=== PATIENT | male | born 1960 | race Caucasian/White ===

== ENCOUNTER 2016-11-13 10:22 | Emergency (ER) | payer OTHER ==
[2016-11-13 10:31] VITALS: BMI 27.3
[2016-11-13 11:11] VITALS: RESP 18; TEMP 98.4; O2SAT 98
[2016-11-13] MEDS ORDERED: Sodium Chloride 0.9% 1,000 ML IV STA (11:12)
[2016-11-13 11:37] LABS: ADD MANUAL DIFF? NO
[2016-11-13 11:42] LABS: BASO # 0.02 K/mm3 (0.0-2.0); BASO % 0.4 % (0.0-3.0); EOS # 0.1 (0.0-0.7); EOS % 1.4 % (1.5-5.0); GRAN # 3.17 (1.4-6.5); GRAN % 57.4 % (50.0-68.0); LYMPH % 35.9 % (22.0-35.0); MEAN CELL VOLUME 86.5 fL (80.0-105.0); MEAN CORPUSCULAR HEMOGLOBIN 32.1 pg (25.0-35.0); MEAN CORPUSCULAR HGB CONC 37.2 g/dl (31.0-37.0); MEAN PLATELET VOLUME 9.7 fl (7.0-11.0); MONO # 0.3 (0.1-0.6); MONO % 4.9 % (1.0-6.0); PLATELET COUNT 207 10^3/uL (120.0-450.0); RED CELL DISTRIBUTION WIDTH 12.4 % (11.5-14.5); WHITE BLOOD COUNT 5.5 10^3/ul (4.5-11.0)
--- NOTE | 2016-11-13 11:48 | ED PDOC ---
Arrival/HPI - General Historian: Patient - History of Present Illness Time/Duration: Prior to Arrival, 1-3 hours Severity Level: 9, 10 <Gerson Tejeda - Last Filed: 11/13/16 11:45> <Mele Bansal - Last Filed: 11/13/16 15:01> - General Chief Complaint: Abdominal Pain Time Seen by Provider: 11/13/16 10:50 - History of Present Illness Narrative History of Present Illness (Text): 11/13/16 11:45 This is a 55 year old male with PMH notable for HLD and GERD presenting with complaint of right sided flank pain since 9:30am this morning. The patient reports that pain is 9/10 pain that is radiating from his flank to his groin. The patient reports nausea. The patient denies all urinary symptoms. The patient reports good appetite, the patient denies fever, chills, vomiting. ( Gerson Tejeda) Past Medical History - Provider Review Nursing Documentation Reviewed: Yes - Travel History Have you recently traveled outside [place] w/in the past 3 mons?: No - Past History Past History: Non-Contributing - Infectious Disease Hx of Infectious Diseases: None - Tetanus Immunization Tetanus Immunization: Unknown - Cardiac Hx Cardiac Disorders: Yes - Gastrointestinal Hx Gastrointestinal Disorders: Yes Hx Gastroesophageal Reflux: Yes - Psychiatric Hx Substance Use: No <Gerson Tejeda - Last Filed: 11/13/16 11:45> Family/Social History - Physician Review Nursing Documentation Reviewed: Yes Family/Social History: No Known Family HX Smoking Status: Never Smoked Hx Alcohol Use: Yes Frequency of alcohol use: Socially Hx Substance Use: No <Gerson Tejeda - Last Filed: 11/13/16 11:45> Allergies/Home Meds <Gerson Tejeda - Last Filed: 11/13/16 11:45> <Mele Bansal - Last Filed: 11/13/16 15:01> Allergies/Adverse Reactions: Allergies Penicillins Allergy (Verified 11/13/16 10:30) ANAPHYLAXIS Review of Systems - Physician Review All systems were reviewed & negative as marked: Yes - Review of Systems Constitutional: absent: Fevers, Night Sweats Eyes: absent: Vision Changes, Photophobia ENT: absent: Hearing Changes, Tinnitus Respiratory: absent: SOB, Cough Cardiovascular: absent: Chest Pain, Palpitations Gastrointestinal: Abdominal Pain, Nausea. absent: Stool Changes, Vomiting, Appetite Changes, Hematochezia, Hematemesis, Food Intolerance Genitourinary Male: absent: Dysuria, Frequency, Hematuria, Urinary Output Changes Musculoskeletal: absent: Arthralgias, Back Pain Skin: absent: Rash, Pruritis Neurological: absent: Headache, Dizziness Endocrine: absent: Diaphoresis Hemo/Lymphatic: absent: Adenopathy Psychiatric: absent: Anxiety <Gerson Tejeda - Last Filed: 11/13/16 11:45> Physical Exam Vital Signs Reviewed: Yes Temperature: Afebrile Blood Pressure: Normal Pulse: Regular Respiratory Rate: Normal Appearance: Positive for: Well-Appearing, Non-Toxic. No: Comfortable Pain Distress: Moderate Mental Status: Positive for: Alert and Oriented X 3 - Systems Exam Head: Present: Atraumatic, Normocephalic Pupils: Present: PERRL Extroacular Muscles: Present: EOMI Conjunctiva: Present: Normal Mouth: Present: Moist Mucous Membranes Neck: Present: Normal Range of Motion Respiratory/Chest: Present: Clear to Auscultation, Good Air Exchange. No: Respiratory Distress, Accessory Muscle Use Cardiovascular: Present: Regular Rate and Rhythm, Normal S1, S2. No: Murmurs Abdomen: Present: Tenderness (RLQ), Normal Bowel Sounds. No: Distention, Peritoneal Signs, Rebound, Guarding Back: Present: Normal Inspection. No: CVA Tenderness, Midline Tenderness, Paraspinal Tenderness Upper Extremity: Present: Normal Inspection. No: Cyanosis, Edema Lower Extremity: Present: Normal Inspection. No: Edema Neurological: Present: GCS=15, CN II-XII Intact, Speech Normal Skin: Present: Warm, Dry, Normal Color. No: Rashes Psychiatric: Present: Alert, Oriented x 3, Normal Insight, Normal Concentration <Gerson Tejeda Last Filed: 11/13/16 11:45> Vital Signs Temp Pulse Resp BP Pulse Ox 11/13/16 13:06 72 18 126/56 L 98 11/13/16 10:23 98.4 F 78 18 122/68 98 Medical Decision Making - Lab Interpretations Interpretation: No clinic. lab abnormalty - RAD Interpretation Senior Enterprise Architect: Radiologist - EKG Interpretation Interpreted by ED Physician: Yes Type: 12 lead EKG <Gerson Tejeda - Last Filed: 11/13/16 11:45> <Mele Bansal - Last Filed: 11/13/16 15:01> ED Course and Treatment: 11/13/16 12:26 Impression: This is a 55 year old male with PMH notable for HLD and GERD presenting with complaint of right sided flank pain since 9:30am this morning. The patient appears in moderate distress 2/2 to pain. Differential: Nephrolithiasis Pyelonephritis Gastroenteritis Pancreatitis Plan: CBC, CMP, Lipase UA CT Abd/Pelv w/o contrast Toradol 15mg IV Prior Visits: None Progress Note: Patient seen and examined at the bedside. Moderate distress 2/2 to pain. Patient able to make urine. The urine appears dark. Patient pending CT abd/ pelv. The patient was given IV toradol for pain. The patient reports that his pain has improved since receiving the toradol. 11/13/16 12:45 Patient improved with toradol. Patient's CT scan and lab evaluation negative for acute pathology. The patient will be prescribed maalox on DC. The patient was advised to follow up with his PMD as soon as possible for follow up. The patient is agreeable with discharge. The patient is medically stable for discharge. (Gerson Tejeda) A 55 year old male with right flank pain. In agreement with resident note, which includes further HPI details. Patient was seen and evaluated with resident , came up with plan and treatment together. Will order CT, labs and medication. 11/13/16 13:00 - CT normal. No appy or renal colic. Patient feels much better. Abdomen is soft and not tender. He will f/u with his pmd this week. (Mele Bansal) - Lab Interpretations Narrative Lab Interpretation (Text): 11/13/16 12:47 11/13/16 11/13/16 12:17 10:43 WBC 5.5 RBC 5.32 Hgb 17.1 Hct 46.0 MCV 86.5 MCH 32.1 MCHC 37.2 H RDW 12.4 Plt Count 207 MPV 9.7 Gran % 57.4 Lymph % (Auto) 35.9 H Nolan % (Auto) 4.9 Eos % (Auto) 1.4 L Baso % (Auto) 0.4 Gran # 3.17 Lymph # 2.0 Nolan # 0.3 Eos # 0.1 Baso # 0.02 Sodium 136 Potassium 4.3 Chloride 99 Carbon Dioxide 23 Anion Gap 18 BUN 13 Creatinine 1.0 Est GFR ( Amer) > 60 Est GFR (Non-Af Amer) > 60 Random Glucose 146 H Calcium 9.8 Total Bilirubin 1.3 AST 94 H ALT 94 H Alkaline Phosphatase 81 Total Protein 8.0 Albumin 4.4 Globulin 3.6 Albumin/Globulin Ratio 1.2 Lipase 131 Urine Color Yellow Urine Appearance Clear Urine pH 6.5 Ur Specific [place] 1.020 Urine Protein Trace H Urine Glucose (UA) Negative Urine Ketones Negative Urine Blood Negative Urine Nitrate Negative Urine Bilirubin Negative Urine Urobilinogen 0.2 Ur Leukocyte Esterase Negative Urine RBC Pending Urine WBC Pending (Gerson Tejeda) Lab Results: 11/13/16 10:43 11/13/16 10:43 Lab Results 11/13/16 12:17: Urine Color Yellow, Urine Appearance Clear, Urine pH 6.5, Ur Specific [place] 1.020, Urine Protein Trace H, Urine Glucose (UA) Negative, Urine Ketones Negative, Urine Blood Negative, Urine Nitrate Negative, Urine Bilirubin Negative, Urine Urobilinogen 0.2, Ur Leukocyte Esterase Negative, Urine RBC 0 - 2, Urine WBC 0 - 2, Ur Epithelial Cells None, Amorphous Sediment Few, Urine Bacteria Many, Urine Other Uyeast 11/13/16 10:43: WBC 5.5, RBC 5.32, Hgb 17.1, Hct 46.0, MCV 86.5, MCH 32.1, MCHC 37.2 H, RDW 12.4, Plt Count 207, MPV 9.7, Gran % 57.4, Lymph % (Auto) 35.9 H, Nolan % (Auto) 4.9, Eos % (Auto) 1.4 L, Baso % (Auto) 0.4, Gran # 3.17, Lymph # 2.0, Nolan # 0.3, Eos # 0.1, Baso # 0.02, Sodium 136, Potassium 4.3, Chloride 99 , Carbon Dioxide 23, Anion Gap 18, BUN 13, Creatinine 1.0, Est GFR ( Amer ) > 60, Est GFR (Non-Af Amer) > 60, Random Glucose 146 H, Calcium 9.8, Total Bilirubin 1.3, AST 94 H, ALT 94 H, Alkaline Phosphatase 81, Total Protein 8.0, Albumin 4.4, Globulin 3.6, Albumin/Globulin Ratio 1.2, Lipase 131 - RAD Interpretation Narrative RAD Interpretations (Text): 11/13/16 12:46 PROCEDURE: CT Abdomen and Pelvis without intravenous contrast HISTORY: flank pain r/o nephrolithiasis COMPARISON: None. TECHNIQUE: Without contrast. Contrast Dose: Radiation dose: Total exam DLP = 814 mGy-cm. FINDINGS: LOWER THORAX: Unremarkable. LIVER: Unremarkable. No gross lesion or ductal dilatation. GALLBLADDER AND BILE DUCTS: Unremarkable. PANCREAS: Unremarkable. No gross lesion or ductal dilatation. SPLEEN: Unremarkable. ADRENALS: Unremarkable. No mass. KIDNEYS AND URETERS: Unremarkable. No hydronephrosis. No solid mass. VASCULATURE: Unremarkable. No aortic aneurysm. BOWEL: Unremarkable. No obstruction. No gross mural thickening. APPENDIX: Unremarkable. Normal appendix. PERITONEUM: Unremarkable. No free fluid. No free air. LYMPH NODES: Unremarkable. No enlarged lymph nodes. BLADDER: Unremarkable. REPRODUCTIVE: Unremarkable. BONES: No acute fracture. OTHER FINDINGS: Hernia mesh is seen in both inguinal canals. IMPRESSION: No acute intra-abdominal findings. No evidence of renal or ureteral stone (Gerson Tejeda) Radiology Orders: 11/13/16 11:11 ABD & PELVIS W/O PO OR IV CONT [CT] Stat - EKG Interpretation EKG Interpretation (Text): 11/13/16 12:47 NSR, no ST or T wave changes. Normal intervals . (Gerson Tejeda) - Medication Orders Current Medication Orders: Discontinued Medications Sodium Chloride (Sodium Chloride 0.9%) 1,000 mls @ 999 mls/hr IV .Q1H1M STA Stop: 11/13/16 12:12 Last Admin: 11/13/16 11:36 Dose: 999 MLS/HR eMAR Start Stop Document 11/13/16 11:36 [facility] (Rec: 11/13/16 11:38 [facility]-[id number]) Intravenous Solution Start Date 11/13/16 Start Time 11:37 End Date 11/13/16 End time 12:37 Total Infusion Time 60 Ketorolac Tromethamine (Toradol) 15 mg IVP STAT STA Stop: 11/13/16 11:12 Last Admin: 11/13/16 11:38 Dose: 15 MG IVP Administration Document 11/13/16 11:38 [facility] (Rec: 11/13/16 11:38 [facility]-[id number]) Charges for Administration # of IVP Administrations 1 - PA / COPY SUPERVISOR / Resident Statement / has reviewed & agrees with the documentation as recorded. / has examined the patient and agrees with the treatment plan. <Mele Bansal - Last Filed: 11/13/16 15:01> Disposition/Present on Arrival - Present on Arrival Any Indicators Present on Arrival: No History of DVT/PE: No History of Uncontrolled Diabetes: No Urinary Catheter: No History of Decub. Ulcer: No History Surgical Site Infection Following: None - Disposition Have Diagnosis and Disposition been Completed?: Yes Disposition Time: 12:30 Patient Plan: Discharge <Gerson Tejeda - Last Filed: 11/13/16 11:45> - Present on Arrival Any Indicators Present on Arrival: No - Disposition Have Diagnosis and Disposition been Completed?: Yes Patient Plan: Discharge <Mele Bansal - Last Filed: 11/13/16 15:01> - Disposition Diagnosis: Abdominal pain Disposition: HOME/ ROUTINE Condition: IMPROVED Discharge Instructions (ExitCare): Acute Abdominal Pain (ED), Abdominal Pain ( ED), Flank Pain (ED) Print Language: GREENLANDIC Additional Instructions: 1.) Maintain adequate hydration 2.) Continue taking omeprazole as prescribed 3.) Take maalox 1-2 tabs by mouth as needed not to excede 12 tabs daily 4.) Home Tylenol/Motrin as needed for pain 5.) Follow up with primary care doctor within 48 hours 6.) If symptoms return/worsen, please return to the ED for evaluation Prescriptions: Calcium Carbonate/Simethicone [Maalox Advanced 1000 mg-60 mg] 1 ctb PO Q6 PRN # 12 ctb PRN Reason: abdominal pain Referrals: Juliana Perez, [Primary Care Provider] - Follow up with primary
[2016-11-13 11:56] LABS: ALB/GLOB RATIO 1.2 (1.1-1.8); ALKALINE PHOSPHATASE 81 U/L (38-133); ALT/SGPT 94 U/L (7-56); AST/SGOT 94 U/L (15-59); BILIRUBIN,TOTAL 1.3 mg/dL (0.2-1.3); BLOOD UREA NITROGEN 13 mg/dL (7-21); CALCIUM 9.8 mg/dL (8.4-10.5); CARBON DIOXIDE 23 mmol/L (21-33); CHLORIDE 99 mmol/L (95-110); GFR AFRICAN-AMERICAN > 60; GLUCOSE,RANDOM 146 mg/dL (70-110); LIPASE 131 U/L (23-300); POTASSIUM 4.3 mmol/L (3.6-5.0); SODIUM 136 mmol/L (132-148)
--- NOTE | 2016-11-13 12:21 | CT ---
PROCEDURE: CT Abdomen and Pelvis without intravenous contrast HISTORY: flank pain r/o nephrolithiasis COMPARISON: None. TECHNIQUE: Without contrast. Contrast Dose: Radiation dose: Total exam DLP = 814 mGy-cm. FINDINGS: LOWER THORAX: Unremarkable. LIVER: Unremarkable. No gross lesion or ductal dilatation. GALLBLADDER AND BILE DUCTS: Unremarkable. PANCREAS: Unremarkable. No gross lesion or ductal dilatation. SPLEEN: Unremarkable. ADRENALS: Unremarkable. No mass. KIDNEYS AND URETERS: Unremarkable. No hydronephrosis. No solid mass. VASCULATURE: Unremarkable. No aortic aneurysm. BOWEL: Unremarkable. No obstruction. No gross mural thickening. APPENDIX: Unremarkable. Normal appendix. PERITONEUM: Unremarkable. No free fluid. No free air. LYMPH NODES: Unremarkable. No enlarged lymph nodes. BLADDER: Unremarkable. REPRODUCTIVE: Unremarkable. BONES: No acute fracture. OTHER FINDINGS: Hernia mesh is seen in both inguinal canals. IMPRESSION: No acute intra-abdominal findings. No evidence of renal or ureteral stone
[2016-11-13 12:28] LABS: PH,URINE 6.5 (4.7-8.0); URINE BILIRUBIN NEGATIVE (NEGATIVE); URINE BLOOD NEGATIVE (NEGATIVE); URINE GLUCOSE (UA) NEGATIVE (NEGATIVE); URINE KETONE NEGATIVE (NEGATIVE); URINE LEUKOCYTE ESTERASE NEGATIVE Leu/uL (NEGATIVE); URINE PROTEIN TRACE mg/dL (<30 mg/dL); URINE UROBILINOGEN 0.2 E.U./dL (<1 E.U./dL)
[2016-11-13 12:31] LABS: URINE APPEARANCE CLEAR (CLEAR); URINE COLOR YELLOW (YELLOW)
[2016-11-13 12:59] LABS: URINE AMORPHOUS SEDIMENT FEW; URINE BACTERIA MANY (NEG); URINE RBC 0 - 2 /hpf (0-2); URINE WBC 0 - 2 /hpf (0-6)
[2016-11-13 13:07] VITALS: BP 126/56; PULSE 72
--- NOTE | 2016-11-13 15:07 | CARD ---
APPROVED REPORT EKG Measurement Heart [id number] <Conclusion> Normal sinus rhythm Normal ECG
== END 2016-11-13 13:09 | disposition home or self-care (01) ==
LOC: ED 10:22
DX: R10.9 Unspecified abdominal pain (principal); K21.9 Gastro-esophageal reflux disease without esophagitis
CPT/HCPCS: 74176; 80053; 81001; 83690; 85025; 93005; 96361; 96374; 99284; J1885; J7040